=== PATIENT | female | born 1955 | race American Indian/Alaskan Native ===

== ENCOUNTER 2017-05-22 09:21 | Emergency (ER) | payer OTHER ==
[2017-05-22 09:35] VITALS: BP 129/43
--- NOTE | 2017-05-22 11:41 | Emergency Department Report ---
ED Neck Pain/Injury HPI - General Chief Complaint: Back Pain/Injury Stated Complaint: BACK/HEAD PAIN Mode of arrival: Ambulatory Limitations: No Limitations - History of Present Illness Initial Comments: 62-year-old -[place] female with a past medical history of genital herpes cervical cancer comes in today for complaint of neck and headaches that' s been going on for 6-8 years. Patient reports that she's had a history of this in the past but has not really discussed it with her primary care provider that she sees regular patient does admit to dizziness about every day and worse when she is laying back. This is been going on for greater than a year. Patient denies any nausea no vomiting denies any change in vision but has not had an eye the last year. Patient has tried no pain medication to relieve her headache and neck pain. MD Complaint: neck pain -: year(s) (8) Severity scale (0 -10): 6 Consistency: intermittent Improves With: other (has not tried anything) Worsens With: other (lying back feels the dizziness to most) Associated Symptoms: none Treatments Prior to Arrival: none - Related Data Home Medications Medication Instructions Recorded Confirmed Last Taken No Known Home Medications [No 02/10/14 02/10/14 Unknown Reported Home Medications] Allergies Allergy/AdvReac Type Severity Reaction Status Date / Time aspirin Allergy Vomiting Verified 02/10/14 14:52 ED Review of Systems ROS: Stated complaint: BACK/HEAD PAIN Other details as noted in HPI Constitutional: denies: chills, fever Eyes: denies: eye pain, eye discharge, vision change ENT: denies: ear pain, throat pain Respiratory: denies: cough, shortness of breath, wheezing Cardiovascular: denies: chest pain, palpitations Endocrine: no symptoms reported Gastrointestinal: denies: abdominal pain, nausea, diarrhea Genitourinary: denies: urgency, dysuria, discharge Musculoskeletal: denies: back pain, joint swelling, arthralgia Skin: denies: rash, lesions Neurological: other (dizziness). denies: headache, weakness, paresthesias Psychiatric: denies: anxiety, depression Hematological/Lymphatic: denies: easy bleeding, easy bruising ED Past Medical Hx - Past Medical History Previous Medical History?: Yes Hx Arthritis: Yes (left arm) Additional medical history: Headache - Surgical History Past Surgical History?: Yes Hx Cholecystectomy: Yes Additional Surgical History: Hysterectomy, tonsillectomy, Polyp removed from colon - Social History Smoking Status: Never Smoker Substance Use Type: None - Medications Home Medications: Home Medications Medication Instructions Recorded Confirmed Last Taken Type No Known Home Medications [No 02/10/14 02/10/14 Unknown History Reported Home Medications] ED Physical Exam - General Limitations: No Limitations - Head Head exam: Present: atraumatic, normocephalic - Eye Eye exam: Present: normal appearance - ENT ENT exam: Present: mucous membranes moist - Neck Neck exam: Present: normal inspection - Respiratory Respiratory exam: Present: normal lung sounds bilaterally. Absent: respiratory distress - Cardiovascular Cardiovascular Exam: Present: regular rate, normal rhythm. Absent: systolic murmur, diastolic murmur, rubs, gallop - GI/Abdominal GI/Abdominal exam: Present: soft, normal bowel sounds - Neurological Exam Neurological exam: Present: alert, oriented X3 - Expanded Neurological Exam Expanded Patient oriented to: Present: person, place, time Cranial nerves: EOM's Intact: Normal, Gag Reflex: Normal, Tongue Deviation: Normal, Nystagmus: Normal, Facial Sensation: Normal, Facial Palsy with Forehead Movement: Normal, Facial Palsy without Forehead Movement: Normal Cerebellar function: Finger to Nose: Normal, Heel to Cueto: Normal, Romberg: Normal Upper motor neuron: Andrew Neglect: Normal, Pronator Drift: Normal, Sensory Extinction: Normal Sensory exam: Upper Extremity Light Touch: Normal, Upper Extremity Pin Prick: Normal, Upper Extremity Temperature: Normal, UE 2 Point Discrimination: Normal, Lower Extremity Light Touch: Normal, Lower Extremity Pin Prick: Normal, Lower Extremity Temperature: Normal Motor strength exam: RUE: 4, LUE: 4, RLE: 4, LLE: 4 DTR: bicep (R): 2+, bicep (L): 2+, knee (R): 2+, knee (L): 2+ Best Eye Response (Cayce): (4) open spontaneously Best Motor Response (Brant): (6) obeys commands Best Verbal Response (Cayce): (5) oriented Brant Total: 15 - Psychiatric Psychiatric exam: Present: normal affect, normal mood - Skin Skin exam: Present: warm, dry, intact, normal color. Absent: rash ED Course Vital Signs 05/22/17 09:30 Temperature 98.6 F Pulse Rate 66 Respiratory 18 Rate Blood Pressure 129/43 O2 Sat by Pulse 98 Oximetry ED Medical Decision Making - Medical Decision Making Patient has been evaluated by this provider fast track. I discussed with patient that her back pain and headache neck pain are all chronic greater than 7 years and dizziness greater than 1 year with no changes no neurological changes no changes in vision no nausea no vomiting. Patient is nontoxic alert and oriented able to carry on conversation neuro exam is within normal limits. There is no defects or deficits in her neuro exam. Discussed with patient that at this time she needs to follow up with her primary care provider to discuss management of her chronic neck pain headache and back pain. I also discussed with Dr. Palma this patient's case and he agreed with my plan. Critical care attestation.: If time is entered above; I have spent that time in minutes in the direct care of this critically ill patient, excluding procedure time. ED Disposition Clinical Impression: Chronic neck and back pain Spondylosis Qualifiers: Spinal region: cervical Spinal osteoarthritis complication: unspecified spinal osteoarthritis Qualified Code(s): M47.812 - Spondylosis without myelopathy or radiculopathy, cervical region Disposition: DC-01 TO HOME OR SELFCARE Is pt being admited?: No Does the pt Need Aspirin: No Condition: Stable Instructions: Chronic Back Pain (ED), Cervical Radiculopathy (ED), Cervical Spinal Stenosis (ED) Additional Instructions: Recommended to follow-up with Dr. Sunil Rico for this chronic issue. Also recommend for Tylenol or Motrin for pain. Referrals: REYES LIVE MD [Primary Care Provider] - 3-5 Days SUNIL RICO MD [Staff Physician] - 3-5 Days
--- NOTE | 2017-05-22 12:44 | XRay Report ---
Cervical spine 3 views: History: Neck and headache pain. Findings: Normal height of vertebral bodies. Decrease in height of C5-C6 and C6-C7. More pronounced at C6-C7. Sclerotic articular surfaces with peripheral osteophytes suggestive severe cervical spondylosis. No fracture. Normal prevertebral soft tissue. Impression: Severe spondylosis lower cervical spine..
== END 2017-05-22 13:09 | disposition home or self-care (01) ==
LOC: ED 09:21
DX: M47.812 Spondylosis without myelopathy or radiculopathy, cervical region (principal); M54.2 Cervicalgia; G89.29 Other chronic pain; M19.90 Unspecified osteoarthritis, unspecified site; R51 Headache; Z90.49 Acquired absence of other specified parts of digestive tract; Z88.6 Allergy status to analgesic agent
CPT/HCPCS: 72040; 99283